=== PATIENT | male | born 1965 | race Hispanic/Latino ===

== ENCOUNTER 2019-09-23 02:21 | Inpatient (IN) | payer SELFPAY ==
[~2019-09-23] VITALS: Ht 167.6 cm; Wt 114.9 kg
[2019-09-23] MEDS ORDERED: MORPHINE SULFATE 4 MG/1ML SYG ONE (02:36)
[2019-09-23] MEDS ORDERED: ONDANSETRON HCL 4 MG/2 ML VIAL ONE (02:36)
[2019-09-23 02:43] LABS: BASOPHILS % (AUTO) 0.9 % (0.0-5.0); EOSINOPHILS % (AUTO) 2.5 % (0.0-8.0); HEMATOCRIT 48.5 % (42-54); MEAN CORPUSCULAR HEMOGLOBIN 29.2 pg (27.0-33.0); MEAN CORPUSCULAR HGB CONC 33.4 g/dL (32.0-36.0); MEAN CORPUSCULAR VOLUME 87.4 fL (79-99); MONOCYTES % (AUTO) 7.2 % (3.0-13.0); NEUTROPHILS % (AUTO) 59.1 % (40.0-77.0); PLATELET COUNT (AUTO) 272 K/uL (130-400); RED BLOOD CELL COUNT(AUTO) 5.55 MIL/uL (4.50-6.20); RED CELL DISTRIBUTION WIDTH 14.5 % (11.0-15.5); WHITE BLOOD COUNT (AUTO) 12.7 K/uL (4.8-10.8)
[2019-09-23 02:55] LABS: CREATININE 1.2 mg/dL (0.5-1.5); POTASSIUM 3.8 mmol/L (3.5-5.1)
[2019-09-23 03:02] LABS: ALBUMIN 3.8 g/dL (3.5-5.0); BILIRUBIN,TOTAL 0.1 mg/dL (0.2-1.0); TOTAL PROTEIN, SERUM 7.1 g/dL (6.0-8.3)
[2019-09-23] MEDS ORDERED: KETOROLAC TROMETHAMINE 30MG/ML ONE (03:04)
[2019-09-23 03:16] LABS: APPEARANCE,URINE Clear (CLEAR); BILIRUBIN,URINE Negative (NEGATIVE); COLOR,URINE Yellow (YELLOW); GLUCOSE, URINE (UA) Negative (NEGATIVE); KETONES,URINE Negative (NEGATIVE); LEUKOCYTE ESTERASE ,URINE Negative (NEGATIVE); NITRATE,URINE Negative (NEGATIVE); OCCULT BLOOD,URINE Negative (NEGATIVE); PROTEIN,URINE Negative (NEGATIVE)
[2019-09-23] MEDS: SODIUM CHLORIDE 0.9% 1000ML 1,000 ML IV SCH (04:40)
[2019-09-23] MEDS ORDERED: ACETAMINOPHEN 325 MG TAB PO PRN ×2 (04:45)
[2019-09-23] MEDS ORDERED: LACTULOSE 20 GM/30 ML UDCUP PO PRN (04:45)
[2019-09-23 06:20] VITALS: BP 135/75
[2019-09-23 06:24] LABS: INR 0.87 (0.85-1.15); PARTIAL THROMBOPLASTIN TIME 28.9 SEC (26.3-35.5); PROTHROMBIN TIME 9.4 SEC (9.6-11.6)
[2019-09-23 07:23] VITALS: BP 135/75
[2019-09-23 08:34] LABS: AMPHET/METH SCREEN,URINE NEGATIVE (NEGATIVE); BARBITURATE SCREEN, URINE NEGATIVE (NEGATIVE); BENZODIAZEPINES SCREEN,URINE POSITIVE (NEGATIVE); CANNABINOID SCREEN,URINE POSITIVE (NEGATIVE); COCAINE SCREEN,URINE POSITIVE (NEGATIVE); OPIATE SCREEN,URINE POSITIVE (NEGATIVE); PHENCYCLIDINE SCREEN,URINE NEGATIVE (NEGATIVE)
[2019-09-23] MEDS: ENOXAPARIN SODIUM 40 MG/0.4 ML SYRINGE SQ SCH (09:00)
[2019-09-23] MEDS: MORPHINE SULFATE 2 MG/ML 1ML SYG IV PRN (09:13)
[2019-09-23] MEDS: FAMOTIDINE/PF 20 MG/2 ML VIAL IV SCH ×2 (09:13→22:57)
[2019-09-23] MEDS: ONDANSETRON HCL 4 MG/2 ML VIAL IV PRN (09:14)
[2019-09-23 11:15] VITALS: BP 139/76
--- NOTE | 2019-09-23 13:07 | NUR ---
NUTRITION EDUCATION DARVIN provided Cholelithiasis Nutrition Education. DARVIN reviewed nutrition reference materials with Pt. Pt verbalized understanding. DARVIN encouraged Pt to notify as nutrition concerns arise. Addendum: 09/23/19 at [address] RD Amended: Links added.
--- NOTE | 2019-09-23 13:17 | NUR ---
DARVIN NOTIFICATION - TRIGGER, NUTR EDUCATION Pt admitted for Cholelithiasis. Pt NPO at time of visit. Unknown of any pending procedures. DARVIN provided nutrition education. Pt with Obesity Class III (40.9). When medically feasible, recommend advance diet as tolerated to GI soft/[place] Diet order. RD to continue to monitor. Please notify as additional nutrition concerns arise. Thank you. Addendum: 09/23/19 at [address] RD Amended: Links added.
[2019-09-23] MEDS: ZOSYN 3.375GM+NS 50ML 50 ML IV SCH ×2 (14:09→22:57)
[2019-09-23 15:59] VITALS: BP 153/60
[2019-09-23 20:43] VITALS: BP 138/75
--- NOTE | 2019-09-23 21:00 | NUR ---
FAMILY CALLED SPOKE TO THE PT'S . SHE WANTED TO KNOW WHY THE PATIENT HAD NOT BEEN GIVEN ANYTHING TO EAT OR DRINK. INFORMED HER THAT THE PT HAD RECENTLY RETURNED FROM THE HIDA SCAN AND WAS PENDING RESULTS. PER ORDERS THE MD ALREADY HAS THE PT NPO. SAID SHE "UNDERSTANDS" AND WOULD TALK TO HER TO "CALM HIM DOWN". NO FURTHER QUESTIONS WERE ASKED AT THIS TIME.
--- NOTE | 2019-09-23 22:37 | NUR ---
HOSPITALIST SHANE SPOKE WITH BRITTANEY DAMON. INFORMED HIM OF HIDA RESULTS. PER ALISA TO KEEP PT NPO.
[2019-09-24] VITALS (7 sets, daily range): BP systolic 110–150; BP diastolic 60–82
[2019-09-24] MEDS: SODIUM CHLORIDE 0.9% 1000ML 1,000 ML IV SCH (00:40)
[2019-09-24] MEDS: ZOSYN 3.375GM+NS 50ML 50 ML IV SCH ×3 (03:15→20:35)
[2019-09-24 06:13] LABS: BASOPHILS % (AUTO) 0.8 % (0.0-5.0); EOSINOPHILS % (AUTO) 2.4 % (0.0-8.0); HEMATOCRIT 45.4 % (42-54); LYMPHOCYTES % (AUTO) 23.6 % (21.0-51.0); MEAN CORPUSCULAR HEMOGLOBIN 29.3 pg (27.0-33.0); MEAN CORPUSCULAR HGB CONC 33.3 g/dL (32.0-36.0); MONOCYTES % (AUTO) 8.6 % (3.0-13.0); NEUTROPHILS % (AUTO) 63.3 % (40.0-77.0); PLATELET COUNT (AUTO) 231 K/uL (130-400); RED BLOOD CELL COUNT(AUTO) 5.16 MIL/uL (4.50-6.20); RED CELL DISTRIBUTION WIDTH 14.5 % (11.0-15.5); WHITE BLOOD COUNT (AUTO) 8.5 K/uL (4.8-10.8)
[2019-09-24 06:28] LABS: CREATININE 1.1 mg/dL (0.5-1.5)
[2019-09-24] MEDS: FAMOTIDINE/PF 20 MG/2 ML VIAL IV SCH ×2 (08:56→20:35)
[2019-09-24] MEDS: ENOXAPARIN SODIUM 40 MG/0.4 ML SYRINGE SQ SCH (09:00)
[2019-09-24] MEDS: MORPHINE SULFATE 2 MG/ML 1ML SYG IV PRN ×2 (11:56→22:13)
--- NOTE | 2019-09-24 14:47 | NUR ---
DCP CM met with pt discussed dc plans. Pt is independent prior to admission, lives at home w/mother, from spouse, but spouse visit pt daily at home. Denies any equipments/services. Pt verbalized he was incarcerated and out on wang since June this year. Feels safe to go back home, doesn't drives, but spouse and sister able to assist with transportation and needs as necessary. DC plan to home once stable. Pt is a self pay, [facility] assisting, pt verbalized that he applied for SSI before but got denied, is going to apply again. CM to cont to follow up. Addendum: 09/24/19 at 1450 by TAMICA CORADO LVN CM Amended: Links added.
[2019-09-25] VITALS (30 sets, daily range): BP systolic 116–156; BP diastolic 60–87
[2019-09-25 03:58] LABS: BASOPHILS % (AUTO) 0.6 % (0.0-5.0); EOSINOPHILS % (AUTO) 2.4 % (0.0-8.0); LYMPHOCYTES % (AUTO) 23.5 % (21.0-51.0); MEAN CORPUSCULAR HEMOGLOBIN 29.1 pg (27.0-33.0); MEAN CORPUSCULAR HGB CONC 33.1 g/dL (32.0-36.0); MEAN CORPUSCULAR VOLUME 87.9 fL (79-99); MONOCYTES % (AUTO) 8.6 % (3.0-13.0); NEUTROPHILS % (AUTO) 63.5 % (40.0-77.0); PLATELET COUNT (AUTO) 246 K/uL (130-400); RED BLOOD CELL COUNT(AUTO) 5.12 MIL/uL (4.50-6.20); RED CELL DISTRIBUTION WIDTH 14.3 % (11.0-15.5); WHITE BLOOD COUNT (AUTO) 9.1 K/uL (4.8-10.8)
[2019-09-25 04:22] LABS: ALBUMIN 3.4 g/dL (3.5-5.0); BILIRUBIN,TOTAL 0.5 mg/dL (0.2-1.0); CREATININE 1.1 mg/dL (0.5-1.5); POTASSIUM 3.8 mmol/L (3.5-5.1); TOTAL PROTEIN, SERUM 6.7 g/dL (6.0-8.3)
[2019-09-25] MEDS: SODIUM CHLORIDE 0.9% 1000ML 1,000 ML IV SCH ×2 (04:22→16:06)
[2019-09-25] MEDS: ZOSYN 3.375GM+NS 50ML 50 ML IV SCH ×3 (04:22→20:22)
--- NOTE | 2019-09-25 08:53 | NUR ---
CONSENT FOR LAPAROSCOPIC CHOLECYSTECTOMY POSSIBLE OPEN, SIGNED AND PLACED IN CHART.
[2019-09-25] MEDS: ENOXAPARIN SODIUM 40 MG/0.4 ML SYRINGE SQ SCH (09:00)
[2019-09-25] MEDS: FAMOTIDINE/PF 20 MG/2 ML VIAL IV SCH ×2 (09:05→20:22)
--- NOTE | 2019-09-25 11:11 | NUR ---
PATIENT TRANSPORTED VIA BED TO [facility] HOLDING , 1200 DOSE OF ZOSYN SENT WITH PATIENT
[2019-09-25] MEDS ORDERED: NEOSTIGMINE 5MG/5ML SYR IV ONE (12:27)
[2019-09-25] MEDS ORDERED: PROPOFOL 10 MG/ML 20ML VIAL IV ONE ×2 (12:27→13:18)
[2019-09-25] MEDS ORDERED: DEXAMETHASONE SOD PHOSPHATE 10MG/ML 1ML VIAL ONE (12:27)
[2019-09-25] MEDS ORDERED: LIDOCAINE PF 2% 5ML ABBOJECT ONE (12:27)
[2019-09-25] MEDS ORDERED: ROCURONIUM 10MG/1ML SYR 10 MG/ML ML ONE (12:27)
[2019-09-25] MEDS ORDERED: ONDANSETRON HCL 4 MG/2 ML VIAL ONE (12:27)
[2019-09-25] MEDS ORDERED: GLYCOPYRROLATE 1 MG/5 ML SYRINGE ONE (12:27)
[2019-09-25] MEDS ORDERED: MIDAZOLAM HCL 1 MG/ML 2ML VIAL ONE (12:27)
[2019-09-25] MEDS ORDERED: FENTANYL CITRATE PF 50 MCG/1 ML 2ML VIAL ONE (12:41)
[2019-09-25] MEDS ORDERED: MEPERIDINE-PF 25 MG/ML SYG ONE ×3 (13:24→13:45)
--- NOTE | 2019-09-25 14:40 | NUR ---
PT BACK FROM [facility] BY BED DRESSING CLEAN AND DRY/ Vs STABLE NO COMPLICATIONS AT THIS TIME WILL CONTINUE TO MONITOR.
[2019-09-25] MEDS: MORPHINE SULFATE 2 MG/ML 1ML SYG IV PRN ×2 (16:02→20:22)
[2019-09-25] MEDS: ONDANSETRON HCL 4 MG/2 ML VIAL IV PRN (17:21)
[2019-09-26 00:19] VITALS: BP 128/70
[2019-09-26] MEDS: MORPHINE SULFATE 2 MG/ML 1ML SYG IV PRN ×2 (00:40→13:22)
[2019-09-26 03:59] VITALS: BP 125/61
[2019-09-26 05:33] LABS: BASOPHILS % (AUTO) 0.4 % (0.0-5.0); EOSINOPHILS % (AUTO) 1.1 % (0.0-8.0); HEMATOCRIT 44.7 % (42-54); LYMPHOCYTES % (AUTO) 14.2 % (21.0-51.0); MEAN CORPUSCULAR HEMOGLOBIN 28.3 pg (27.0-33.0); MEAN CORPUSCULAR HGB CONC 32.2 g/dL (32.0-36.0); MEAN CORPUSCULAR VOLUME 87.8 fL (79-99); MONOCYTES % (AUTO) 10.5 % (3.0-13.0); NEUTROPHILS % (AUTO) 72.9 % (40.0-77.0); PLATELET COUNT (AUTO) 232 K/uL (130-400); RED BLOOD CELL COUNT(AUTO) 5.09 MIL/uL (4.50-6.20); RED CELL DISTRIBUTION WIDTH 14.4 % (11.0-15.5); WHITE BLOOD COUNT (AUTO) 10.5 K/uL (4.8-10.8)
[2019-09-26] MEDS: ZOSYN 3.375GM+NS 50ML 50 ML IV SCH ×2 (05:37→13:21)
[2019-09-26 06:00] LABS: ALBUMIN 3.4 g/dL (3.5-5.0); BILIRUBIN,TOTAL 0.6 mg/dL (0.2-1.0); CREATININE 1.1 mg/dL (0.5-1.5); POTASSIUM 3.8 mmol/L (3.5-5.1); TOTAL PROTEIN, SERUM 6.5 g/dL (6.0-8.3)
[2019-09-26 07:19] VITALS: BP 148/75
[2019-09-26] MEDS: SODIUM CHLORIDE 0.9% 1000ML 1,000 ML IV SCH ×2 (09:30→12:40)
[2019-09-26] MEDS: FAMOTIDINE/PF 20 MG/2 ML VIAL IV SCH (09:30)
[2019-09-26] MEDS ORDERED: KETOROLAC TROMETHAMINE 10 MG TABLET PO PRN (09:45)
[2019-09-26 11:10] VITALS: BP 122/64
--- NOTE | 2019-09-26 14:00 | NUR ---
DR. BECK NOTIFIED RE; ABD DISCOMFORT PT STATES FEELS LIKE A HERNIA, PER DR. BECK SUPPLY PT WITH ABD BINDER. AND D/C HOME. FU IN 1 WEEK. JAMESON.
[2019-09-26 15:20] VITALS: BP 134/80
[2019-09-26] MEDS ORDERED: METR-172 PO (16:15)
[2019-09-26] MEDS ORDERED: LEVO750T46 PO (16:15)
--- NOTE | 2019-09-26 17:20 | NUR ---
PT D.C HOME USING TEACH BACK TECHNIQUE RE; S./S TO WATCH FOR AND WHEN TO CALL MD OR 911. Please refer to medication reconciliation sheet for full details on, medications, doses, and frequency of new medications. Discontinued and, continued home medications., Metronidazole 500 mg 3 times a day for 5 days., Levofloxacin 750 mg daily for 5 days., Do not lift up more than 15 pounds. DISCHARGE FOLLOW UP: <Follow-up with in 2 to 3 weeks. With primary care provider within 2 to 3 weeks. CALL TO SET UP AN APPOINTMENT AT [phone]. IF YOU NOTICE ANY BLEEDING, DRAINIAGE, SWELLING, PAIN OR FEVERS GREATER THAN 101.0 CALL YOUR SURGEON COULD MEAN YOU HAVE AN INFECTION. PRESCRIPTION GIVEN TO YOU AT DISCHARGE, MAKE SURE TO COMPLETE FULL COURSE OF ANTIBIOTIC TO PREVENT SUPER INFECTIONS. ABDOMINAL BRACE GIVEN TO YOU AT DISCHARGE AND APPLIED. IV OUT INTACT, NO BLEEDING, AAOX3, DRESSING CHANGES DONE, NO REDNESS NOR SWELLING, PER DR. BECK PT HAS SLIGHT INDURATION BUT PT MAY USE ABD SOHAN AND ALBERT IN 1 WEEK W. .
== END 2019-09-26 17:30 | disposition home or self-care (01) | DRG 418 ==
LOC: EDH 02:21 → EDHIP 02:22 → 3BH 05:18
PROVIDERS: ADMIT Internal Medicine; ATTEND Internal Medicine
PROC: 0FT44ZZ Resection of Gallbladder, Percutaneous Endoscopic Approach (ICD-10-PCS; principal; 2019-09-25 12:33)
DX: K80.62 Calculus of gallbladder and bile duct with acute cholecystitis without obstruction (principal); Z68.41 Body mass index [BMI] 40.0-44.9, adult; M62.82 Rhabdomyolysis; E66.9 Obesity, unspecified; F12.90 Cannabis use, unspecified, uncomplicated; F17.200 Nicotine dependence, unspecified, uncomplicated; K82.8 Other specified diseases of gallbladder; F19.10 Other psychoactive substance abuse, uncomplicated; Z91.14 Patient's other noncompliance with medication regimen
CPT/HCPCS: 36415; 76705; 78227; 80048; 80053; 80305; 81003; 82550; 83605; 83690; 84484; 85025; 85610; 85730; 93005; A9537; G0378; J1100; J1650; J1885; J2001; J2175; J2250; J2270; J2405; J2543; J2704; J2710; J3010; J3490

== ENCOUNTER 2021-11-03 13:15 | Emergency (ER) | payer OTHER ==
[~2021-11-03] VITALS: Ht 167.6 cm; Wt 119.7 kg
[~2021-11-03 13:15] MED LIST: LEVO750T46 PO; METR-172 PO
[2021-11-03] MEDS ORDERED: KETOROLAC 30MG VIAL (30MG/ML) IM ONE (13:30)
[2021-11-03] MEDS ORDERED: KETOROLAC 30MG VIAL (30MG/ML) ONE (14:39)
[2021-11-03] MEDS ORDERED: NAPR-1196 PO (15:01)
[2021-11-03 15:14] VITALS: BP 138/85
== END 2021-11-03 15:30 | disposition home or self-care (01) ==
LOC: EDH 13:15
DX: S16.1XXA Strain of muscle, fascia and tendon at neck level, initial encounter (principal); M47.812 Spondylosis without myelopathy or radiculopathy, cervical region; M25.512 Pain in left shoulder; Z88.6 Allergy status to analgesic agent; Z79.899 Other long term (current) drug therapy; Z90.49 Acquired absence of other specified parts of digestive tract; X58.XXXA Exposure to other specified factors, initial encounter; Y93.89 Activity, other specified; Y92.89 Other specified places as the place of occurrence of the external cause; Y99.8 Other external cause status
CPT/HCPCS: 72040; 73030; 96372; 99284; J1885